=== PATIENT | male | born 1960 | race Caucasian/White ===

== ENCOUNTER 2024-01-19 12:49 | Day surgery (SDC) | payer MEDICAID, OTHER ==
[~2024-01-19] VITALS: Ht 193 cm; Wt 127.0 kg
[2024-01-19] VITALS (10 sets, daily range): BP systolic 123–156; BP diastolic 57–83; PULSE 76–86; RESP 12–21; O2SAT 95–100
[2024-01-19] MEDS ORDERED: AMLO5TAB16 PO (13:32)
[2024-01-19] MEDS ORDERED: CHOL500044 PO (13:35)
[2024-01-19] MEDS ORDERED: CLOB30CR11 TOP (13:37)
[2024-01-19] MEDS ORDERED: FOLI0.4T14 PO (13:37)
[2024-01-19] MEDS ORDERED: FURO10VI51 IV (13:40)
[2024-01-19] MEDS ORDERED: HEPA500015 IJ (13:52)
[2024-01-19] MEDS ORDERED: GABA250S PO (13:52)
[2024-01-19] MEDS ORDERED: fentaNYL/PF 50MCG/1 ML 2ML syringe ONE (13:54)
[2024-01-19] MEDS ORDERED: diphenhydrAMINE 50 mg/ml inj ONE (13:55)
[2024-01-19] MEDS ORDERED: LIDOcaine 2% Viscous 15ml cup ONE (13:55)
[2024-01-19] MEDS ORDERED: MIDAZolam 1 MG/ML 5ML VIAL ONE (13:55)
[2024-01-19] MEDS ORDERED: INSU200I (13:56)
[2024-01-19] MEDS ORDERED: IRON150C5 PO (13:56)
[2024-01-19] MEDS ORDERED: PANT40TA54 PO (13:58)
[2024-01-19] MEDS ORDERED: LISI20TA28 PO (13:58)
[2024-01-19] MEDS ORDERED: POLY250017 PO (13:59)
[2024-01-19] MEDS ORDERED: SENN-302 PO (14:01)
[2024-01-19] MEDS ORDERED: THIA50TA10 PO (14:01)
[2024-01-19] MEDS ORDERED: CEFA2PIG IV (14:11)
== END 2024-01-19 19:04 ==
LOC: GI LAB 12:49
PROVIDERS: ATTEND Internal Medicine Gastroenterology
DX: D50.0 Iron deficiency anemia secondary to blood loss (chronic) (principal); R19.5 Other fecal abnormalities; K29.70 Gastritis, unspecified, without bleeding
CPT/HCPCS: 43239; J1200; J2250; J3010; J7030; Z7512; 99152; A4620